=== PATIENT | male | born 1995 | race Caucasian/White ===

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

== ENCOUNTER 2022-02-21 09:39 | Emergency (ER) | payer OTHER ==
[2022-02-21 09:49] VITALS: BP 145/70; PULSE 70; RESP 18; TEMP 97.6; BMI 25.0
[2022-02-21] MEDS ORDERED: IBUPROFEN 400 MG TABLET (FP) PO ONE ×2 (09:55→09:57)
[2022-02-21 10:40] LABS: HEMATOCRIT 46.3 % (35.4-49); HEMOGLOBIN 16.4 G/dL (11.7-16.9); MCH 32.6 pg (25.7-33.7); MCHC 35.4 g/dl (32.0-35.9); MEAN CELL VOLUME 92.1 fl (80-96); MEAN PLT VOLUME 8.9 fl (7.5-11.1); PLATELET COUNT 224.3 10^3/uL (134-434); RBC 5.03 10^6/uL (4.00-5.60); RDW 13.5 % (11.9-15.9); WHITE BLOOD COUNT 14.9 10^3/uL (4.0-10.8)
[2022-02-21 10:44] LABS: ALBUMIN 4.2 g/dl (3.4-5.0); CALCIUM 9.2 mg/dl (8.5-10); CREATININE 0.8 mg/dl (0.55-1.3)
[2022-02-21] MEDS ORDERED: CEFAZOLIN 1 GM in DEXTROSE 5%-WATER - 50 ML IVPB ONE (10:44)
[2022-02-21] MEDS ORDERED: ceFAZolin SODIUM 1 GM VIAL ONE (10:56)
[2022-02-21 11:00] LABS: PLATELET ESTIMATE ADEQUATE
== END 2022-02-21 12:45 | disposition home or self-care (01) ==
LOC: FER 09:39
DX: S69.91XA Unspecified injury of right wrist, hand and finger(s), initial encounter (principal)
CPT/HCPCS: 36415; 73130-TC-RT-FY; 80053; 85025; 99284-25